=== PATIENT | female | born 1975 | race Caucasian/White ===

== ENCOUNTER 2023-12-20 10:54 | Emergency (ER) | payer BC ==
[~2023-12-20] VITALS: Ht 165.1 cm; Wt 72.6 kg
[2023-12-20 11:11] VITALS: PULSE 73; RESP 18; TEMP 97.8; O2SAT 97
[2023-12-20 13:25] VITALS: BP_SYST 129; PULSE 64; RESP 18; TEMP 97.9; O2SAT 98
== END 2023-12-20 13:28 | disposition home or self-care (01) ==
LOC: SED 10:54
DX: S83.92XA Sprain of unspecified site of left knee, initial encounter (principal); Z79.899 Other long term (current) drug therapy; V00.321A Fall from snow-skis, initial encounter; Y93.89 Activity, other specified; Y92.89 Other specified places as the place of occurrence of the external cause; Y99.8 Other external cause status
CPT/HCPCS: 93970; 99284